=== PATIENT | female | born 2000 | race Caucasian/White ===

== ENCOUNTER 2024-06-25 19:56 | Emergency (ER) | payer OTHER ==
[2024-06-25 20:10] VITALS: BP 120/65; PULSE 78; RESP 18; TEMP 98.4; BMI 65.9
[2024-06-25] MEDS ORDERED: IBUPROFEN 600 MG TABLET (FP) PO ONE (20:37)
[2024-06-25] MEDS ORDERED: LIDOCAINE 4% PATCH TP ONE (20:37)
[2024-06-25] MEDS: IBUPROFEN 600 MG TABLET (FP) PO ONE (20:40)
[2024-06-25] MEDS: LIDOCAINE 5% TOPICAL PATCH TP ONE (20:40)
[2024-06-25] MEDS ORDERED: LIDOCAINE PATCH REMOVAL MC SCH (22:00)
== END 2024-06-25 20:47 | disposition home or self-care (01) ==
LOC: JERFT 19:56
DX: S20.223A Contusion of bilateral back wall of thorax, initial encounter (principal); X50.1XXA Overexertion from prolonged static or awkward postures, initial encounter
CPT/HCPCS: 99283-25